=== PATIENT | female | born 1950 | race Caucasian/White ===

== ENCOUNTER 2022-09-18 06:31 | Observation (INO) ==
--- NOTE | 2022-09-05 10:31 | PAT Medication Instructions ---
Medication Instructions Date of Service September 05, 2022 Home Medications albuterol sulfate 90 mcg/actuation aerosol inhaler (Ventolin HFA) 2 puff inhalation Q4H PRN amlodipine 5 mg tablet 5 mg PO HS ascorbic acid (vitamin C) 1,000 mg tablet (Vitamin C) 1 g PO HS cetirizine 10 mg tablet (Zyrtec) 10 mg PO BID PRN cholecalciferol (vitamin D3) 125 mcg (5,000 unit) tablet (Vitamin D3) 125 mcg PO HS ferrous sulfate 325 mg (65 mg iron) tablet (iron) 325 mg PO HS levothyroxine 88 mcg tablet 88 mcg PO QAM lisinopril 10 mg-hydrochlorothiazide 12.5 mg tablet 1 tab PO QAM magnesium 200 mg tablet 400 mg PO QAM montelukast 10 mg tablet (Singulair) 10 mg PO QAM zinc 50 mg capsule 50 mg PO HS DO NOT take the morning of surgery cetirizine 10 mg tablet (Zyrtec) 10 mg PO BID PRN lisinopril 10 mg-hydrochlorothiazide 12.5 mg tablet 1 tab PO QAM magnesium 200 mg tablet 400 mg PO QAM Take morning of surgery With a small sip of water, OTHERWISE NOTHING TO EAT OR DRINK AFTER MIDNIGHT: albuterol sulfate 90 mcg/actuation aerosol inhaler (Ventolin HFA) 2 puff inhalation Q4H PRN(use if needed; please bring with you to hospital day of surgery if possible) levothyroxine 88 mcg tablet 88 mcg PO QAM montelukast 10 mg tablet (Singulair) 10 mg PO QAM Take evening before surgery albuterol sulfate 90 mcg/actuation aerosol inhaler (Ventolin HFA) 2 puff inhalation Q4H PRN(if needed) amlodipine 5 mg tablet 5 mg PO HS ascorbic acid (vitamin C) 1,000 mg tablet (Vitamin C) 1 g PO HS cetirizine 10 mg tablet (Zyrtec) 10 mg PO BID PRN(if needed) cholecalciferol (vitamin D3) 125 mcg (5,000 unit) tablet (Vitamin D3) 125 mcg PO HS ferrous sulfate 325 mg (65 mg iron) tablet (iron) 325 mg PO HS zinc 50 mg capsule 50 mg PO HS Other Notes If you have any questions please call us at [phone] or [phone] or [phone] or [phone]
--- NOTE | 2022-09-06 09:43 | Anesthesiology Consultation ---
Date of Service September 06, 2022 Assessment & Plan (1) Encounter for pre-operative examination: - COVID screening: Per assessment on 09/06: No known COVID-19 positive contacts or current COVID-19 related symptoms. Travel screen negative. At surgeon discretion if preop Covid testing being done. - Outpatient joint assessment: Pt currently scheduled for inpatient pathway. If surgeon requests review for outpatient joint pathway, patient is not recommended candidate for outpatient joint program from anesthesia standpoint. - Anesthesia/surgery concern: After right knee arthroscopy surgery, patient had large bruise and nerve damage to right thigh (felt related to tourniquet use)- residual issues "for a long time" > Patient requests caution with tourniquet use and BP cuff perioperatively as she is afraid of nerve damage/complications (patient states she will inform surgeon of concerns as well). - Family hx of (suspected) Malignant hyperthermia: Daughter- 30 years ago, came out of surgery with extremely high fever that they couldn't control. Daughter was never formally tested but was treated with MH precautions after the incident. Patient states she has never been formally tested but has mentioned the family history and "is always first case" > *OR (Jimena)/surgeon's office aware of need for MH precautions* Chart Review Chart Review: Acceptable Risk for Surgery and Patient seen in Pre Admission Testing Teaching & Discussion Pre-Anesthesia Teaching/Discussion Notes: Instructed NPO after midnight before surgery,except medications with 15 cc of water. Medication instructions provided according to the PAT guidelines. History Surgery Operation Date: 09/18/22 14:10 Proposed Procedures p Right Reverse Total Shoulder Arthroplasty - Ayaz Enriquez MD Height/Weight Height: 5 ft 1.5 in Weight: 75.3 kg Allergies Allergy/AdvReac Type Severity Reaction Status Date / Time vancomycin Allergy Severe DIFFICULTY Verified 09/05/22 07:35 BREATHING meperidine Allergy Intermediate RASH Verified 09/05/22 07:35 etodolac Allergy Unknown ASTHMA Verified 09/05/22 07:35 ATTACK ketorolac Allergy Unknown DEPRESSION Verified 09/05/22 07:35 latex Allergy Unknown LOCAL RASH Verified 09/05/22 07:35 adhesive AdvReac Intermediate RASH AND Verified 09/05/22 07:35 SWELLING celecoxib AdvReac Mild GI UPSET Verified 09/05/22 07:35 hydrocodone AdvReac Mild N&V Verified 09/05/22 07:35 oxycodone AdvReac Mild N&V Verified 09/05/22 07:35 topiramate AdvReac Mild N&V Verified 09/05/22 07:35 triprolidine AdvReac Mild RAPID Verified 09/05/22 07:35 HEART RATE blue dye AdvReac Unknown N&V Verified 09/05/22 07:35 duloxetine AdvReac Unknown N&V Verified 09/05/22 07:35 hydromorphone AdvReac Unknown N&V Verified 09/05/22 07:35 pseudoephedrine AdvReac Unknown RAPID Verified 09/05/22 07:35 HEARTBEAT Medications Home Medications Medication Instructions Recorded Confirmed Last Taken albuterol sulfate 90 mcg/actuation 2 puff inhalation Q4H PRN 09/05/22 09/05/22 Unknown aerosol inhaler (Ventolin HFA) Shortness Of Breath amlodipine 5 mg tablet 5 mg PO HS 09/05/22 09/05/22 Unknown ascorbic acid (vitamin C) 1,000 mg 1 g PO HS 09/05/22 09/05/22 Unknown tablet (Vitamin C) cetirizine 10 mg tablet (Zyrtec) 10 mg PO BID PRN seasonal allergies 09/05/22 09/05/22 Unknown cholecalciferol (vitamin D3) 125 125 mcg PO HS 09/05/22 09/05/22 Unknown mcg (5,000 unit) tablet (Vitamin D3) ferrous sulfate 325 mg (65 mg 325 mg PO HS 09/05/22 09/05/22 Unknown iron) tablet (iron) levothyroxine 88 mcg tablet 88 mcg PO QAM 09/05/22 09/05/22 Unknown lisinopril 10 1 tab PO QAM 09/05/22 09/05/22 Unknown mg-hydrochlorothiazide 12.5 mg tablet magnesium 200 mg tablet 400 mg PO QAM 09/05/22 09/05/22 Unknown montelukast 10 mg tablet 10 mg PO QAM 09/05/22 09/05/22 Unknown (Singulair) zinc 50 mg capsule 50 mg PO HS 09/05/22 09/05/22 Unknown Past Medical History Medical History Anemia Arthritis Asthma Fibromyalgia Minerva's disease History of COVID-19 x3, most recent 12/2021 Hypertension Multiple sclerosis Controlled off meds, no progression since 2017 Sleep apnea CPAP (occasional use) Exercise / Class Metabolic Activity II 4-5 Yardwork/Stairs/Walk up hill (one FS (no CP, no SOB)) Past Surgical History Surgical History (Updated 09/06/22 @ 10:20 by Angelina Schulte) Family history of malignant hyperthermia Daughter- 30 years ago, came out of surgery with extremely high fever that th ey couldn't control. Daughter was never formally tested but was treated with MH precautions after the incident. Patient states she has never been formally tested but has mentioned the family history and "is always first case" History of anesthesia problem Awareness History of bunionectomy of right great toe History of dilatation and curettage for 2 miscarriages History of ear surgery middle ear bone and eardrum reconstruction History of esophagogastroduodenoscopy (EGD) History of lumbar surgery History of total left knee replacement History of total right knee replacement History of uvulopalatopharyngoplasty Hx of arthroscopic knee surgery R/L After right knee arthroscopy surgery (2007), patient had large bruise and nerve damage to right thigh (felt related to tourniquet use)- residual issues "for a long time" Hx of breast lump removal benign Hx of cholecystectomy Hx of colonoscopy Hx of fusion of cervical spine Hx of myringotomy w/tubes Past Anesthesia History Malignant Hyperthermia (Family hx) and Other (Awareness) After right knee arthroscopy surgery (2007), patient had large bruise and nerve damage to right thigh (felt related to tourniquet use)- residual issues "for a long time" History of PONV No Hx of PONV Social History Smoking Status: Never smoker Do You Dip or Chew Tobacco: No Hx Alcohol Use: Yes Alcohol type: wine alcohol intake frequency: other Alcohol Intake Frequency Comment: ONCE PER WEEK, 1 GLASS Hx Substance Use: No substance use type: does not use Review of Systems Patient denies chest pain, shortness of breath, dyspnea on exertion, fever, chills, cough, wheezing, palpitations. Physical Exam Vital Signs VITALS BP 122/82 P 81 TEMP 97.8 SP02 98%RA RESP 16 PHYSICAL Full cervical extension range of motion. Full TMJ range of motion. TMD 3 finger breaths Mallampati Score 1 Dentition: upper full denture Lungs: clear throughout to auscultation Cardiac: regular rate and rhythm, no murmurs noted Spine: normal Carotid arteries: negative bruit Extremities: no edema Lab Results Anesthesia Preop Results Results Anesthesia Widget: WBC 6.19 K/ul (4.8-10.8) 09/06/22 Hgb 12.7 g/dl (12.0-16.0) 09/06/22 Hct 37.9 % (37.0-47.0) 09/06/22 Plt 248 K/uL (130-400) 09/06/22 Na 139 mmol/L (136-145) 09/06/22 K 4.1 mmol/L (3.5-5.1) 09/06/22 Cl 105 mmol/L (98-107) 09/06/22 CO2 29 mmol/L (21-32) 09/06/22 BUN 28 mg/dl (6-23) H 09/06/22 Creat 0.88 mg/dl (0.6-1.2) 09/06/22 Glucose Level 72 mg/dl (70-99(Fasting)) 09/06/22 PT 11.1 Seconds (9.0-12.0) 09/06/22 PTT 28.6 Seconds (21.0-31.0) 09/06/22 INR 1.0 (0.9-1.1) 09/06/22 Urine Color Yellow 09/06/22 Urine Appearance Clear (Clear) 09/06/22 Urine pH 5.0 (4.5-7.5) 09/06/22 Urine Specific [place] 1.020 (1.000-1.030) 09/06/22 Urine Protein Negative (Negative) 09/06/22 Urine Glucose (UA) Negative (Negative) 09/06/22 Urine Ketones Negative (Negative) 09/06/22 Urine Blood Negative (Negative) 09/06/22 Urine Nitrite Negative (Negative) 09/06/22 Urine Bilirubin Negative (Negative) 09/06/22 Urine Urobilinogen Negative (Negative) 09/06/22 Urine Leukocyte Esterase Negative (Negative) 09/06/22 Blood Type O Positive 09/06/22 Antibody Screen NEGATIVE 09/06/22 Testing Electrocardiogram Date: 09/06/22 Findings: + NSR @ (77) Chest X-Ray Date: 09/06/22 FINDINGS: Cardiomediastinal and hilar silhouettes are within normal limits. No pneumothorax, pleural effusion, airspace consolidation or pulmonary edema. Degenerative changes of the shoulders and spine. Findings suggestive of prior resection of the distal clavicles. Cholecystectomy. IMPRESSION: No acute process. COVID-19 Risk Screen Screening Information COVID-19 Screen Date: 09/06/22 Exposure 21 Days Family/Household +COVID Last 21 Days: No Exposure 10 Days Any COVID Exposure Last 10 Days: No Symptoms Last 10 Days Experienced COVID Sx Last 10 Days: No + COVID 0-90 Days COVID + in Last 0-90 Days: No
--- NOTE | 2022-09-17 09:00 | History & Physical Report ---
Date of Service September 17, 2022 Assessment & Plan (1) Rotator cuff arthropathy of right shoulder: Plan: Treatment options discussed with patient. She has failed conservative measures. Risks, benefits and alternatives to surgery including but not limited to infection, DVT, pain, stiffness, need for revision surgery, damage to blood vessels, damage to nerves, PE, , were discussed with the patient and they wish to proceed. Plan for right reverse total shoulder arthroplasty at [facility] on 09/18/[address] Enriquez. Plan on Nucynta post op for pain management. All quesitons answered. F/u post op. History of Present Illness Chief Complaint: Right shoulder pain Primary Care Provider: Hugo Sky 71yo female with PMHx significant for MS and HTN presents with ongoing right shoulder pain. Pain is interfering with her daily activity. She has failed conservative measures. Patient denies headaches, sweats, fevers, chills, double vision, blurred vision, cough, sore throat, dysphagia, chest pain, sob, wheezing, n/v/d/c, numbness, tingling, fatigue, urinary symptoms, mood disorders. ROS positive for right shoulder pain and stiffness. Allergies Allergy/AdvReac Type Severity Reaction Status Date / Time vancomycin Allergy Severe DIFFICULTY Verified 09/05/22 07:35 BREATHING meperidine Allergy Intermediate RASH Verified 09/05/22 07:35 etodolac Allergy Unknown ASTHMA Verified 09/05/22 07:35 ATTACK ketorolac Allergy Unknown DEPRESSION Verified 09/05/22 07:35 latex Allergy Unknown LOCAL RASH Verified 09/05/22 07:35 adhesive AdvReac Intermediate RASH AND Verified 09/05/22 07:35 SWELLING celecoxib AdvReac Mild GI UPSET Verified 09/05/22 07:35 hydrocodone AdvReac Mild N&V Verified 09/05/22 07:35 oxycodone AdvReac Mild N&V Verified 09/05/22 07:35 topiramate AdvReac Mild N&V Verified 09/05/22 07:35 triprolidine AdvReac Mild RAPID Verified 09/05/22 07:35 HEART RATE blue dye AdvReac Unknown N&V Verified 09/05/22 07:35 duloxetine AdvReac Unknown N&V Verified 09/05/22 07:35 hydromorphone AdvReac Unknown N&V Verified 09/05/22 07:35 pseudoephedrine AdvReac Unknown RAPID Verified 09/05/22 07:35 HEARTBEAT Home Medications Medication Instructions Recorded Confirmed Type albuterol sulfate 90 mcg/actuation 2 puff inhalation Q4H PRN 09/05/22 09/05/22 History aerosol inhaler (Ventolin HFA) Shortness Of Breath amlodipine 5 mg tablet 5 mg PO HS 09/05/22 09/05/22 History ascorbic acid (vitamin C) 1,000 mg 1 g PO HS 09/05/22 09/05/22 History tablet (Vitamin C) cetirizine 10 mg tablet (Zyrtec) 10 mg PO BID PRN seasonal allergies 09/05/22 09/05/22 History cholecalciferol (vitamin D3) 125 125 mcg PO HS 09/05/22 09/05/22 History mcg (5,000 unit) tablet (Vitamin D3) ferrous sulfate 325 mg (65 mg 325 mg PO HS 09/05/22 09/05/22 History iron) tablet (iron) levothyroxine 88 mcg tablet 88 mcg PO QAM 09/05/22 09/05/22 History lisinopril 10 1 tab PO QAM 09/05/22 09/05/22 History mg-hydrochlorothiazide 12.5 mg tablet magnesium 200 mg tablet 400 mg PO QAM 09/05/22 09/05/22 History montelukast 10 mg tablet 10 mg PO QAM 09/05/22 09/05/22 History (Singulair) zinc 50 mg capsule 50 mg PO HS 09/05/22 09/05/22 History Past Med/Surg History Medical History (Updated 09/17/22 @ 09:05 by Landon Rivers PA-C) Anemia Arthritis Asthma Fibromyalgia Minerva's disease History of COVID-19 x3, most recent 12/2021 Hypertension Multiple sclerosis Controlled off meds, no progression since 2017 Sleep apnea CPAP (occasional use) Surgical History (Updated 09/06/22 @ 10:20 by Angelina Schulte) Family history of malignant hyperthermia Daughter- 30 years ago, came out of surgery with extremely high fever that they couldn't control. Daughter was never formally tested but was treated with MH precautions after the incident. Patient states she has never been formally tested but has mentioned the family history and "is always first case" History of anesthesia problem Awareness History of bunionectomy of right great toe History of dilatation and curettage for 2 miscarriages History of ear surgery middle ear bone and eardrum reconstruction History of esophagogastroduodenoscopy (EGD) History of lumbar surgery History of total left knee replacement History of total right knee replacement History of uvulopalatopharyngoplasty Hx of arthroscopic knee surgery R/L After right knee arthroscopy surgery (2007), patient had large bruise and nerve damage to right thigh (felt related to tourniquet use)- residual issues "for a long time" Hx of breast lump removal benign Hx of cholecystectomy Hx of colonoscopy Hx of fusion of cervical spine Hx of myringotomy w/tubes Social History Smoking Status: Never smoker Second Hand Exposure: No; Hx Alcohol Use: Yes Alcohol type: wine Hx Substance Use: No Preferred Language: [place] Communication Ability: Effective Mechanical Maintenance Required: No Beliefs That Will Affect Care: None Current Living Situation: Alone Feels Safe at Home: Yes Assistive Devices: CPAP, Denture - Upper and Glasses Review of Systems All systems reviewed & are unremarkable except as noted in HPI & below Physical Exam Constitutional: well developed and well nourished; no acute distress Eyes: PERRL, conjunctivae normal, anicteric sclerae ENMT: external ear and nose normal, oropharynx normal Neck: trachea midline, no thyromegaly Respiratory: normal respiratory effort, lungs clear to auscultation Cardiovascular: RRR, no murmur, no edema Musculoskeletal: Right shoulder: Pain at end range lateral arm. Painful ROM. FF to 150 degrees, abduction to 130 degrees, ER to 70 degrees. Weakness with strength testing. Skin: no rashes, warm and dry Neurologic: patellar DTR's 2+ bilat, sensation intact Psychiatric: A+Ox3, euthymic affect Results & Data Diagnostic Findings X-rays of her right shoulder demonstrate that she has advancing glenohumeral osteoarthritis. She has a narrow glenohumeral joint space, large osteophytes, and calcifications in the rotator cuff versus loose bodies. Previous subacromial decompression and distal clavicle excision. Chronic cystic change in the bone proximally in the humerus. These are all consistent with rotator cuff arthropathy and advanced DJD of the glenohumeral joint. MRI demonstrates rotator cuff tendinopathy with partial tearing, large subchondral cyst greater tuberosity previously biopsied.
[~2022-09-18 06:31] MED LIST: FAMOTIDINE 20 MG TAB PO SCH; GABAPENTIN 300 MG CAP PO SCH; LR 500ML BOLUS, THEN 15ML/HR IV SCH; METOCLOPRAMIDE HCL 10 MG TABLET PO SCH; TRANEXAMIC ACID 1,000 MG **IV Intra-op IV SCH; TRANEXAMIC ACID 1,000 MG **IV Pre-op IV SCH; ceFAZolin 2000MG 2,000 MG/15 ML SYR IV SCH; dexAMETHasone 4 MG TAB PO SCH
[2022-09-18] MEDS ORDERED: BUPIVACAINE 0.5 % 5 MG/1 ML PF 10ML VIAL ONE (06:32)
[2022-09-18] MEDS ORDERED: LIDOCAINE 2% MPF LOCAL 5 ML VIAL ONE (07:08)
[2022-09-18] MEDS ORDERED: PROPOFOL IV EMULSION 10 MG/ML 20 ML VIAL IV ONE ×5 (07:08→11:33)
[2022-09-18] MEDS ORDERED: ROCURONIUM BROMIDE 10 MG/ML 5 ML VIAL IV ONE ×2 (07:08→10:14)
[2022-09-18] MEDS ORDERED: fentaNYL citrate PF 100 MCG/2 ML VIAL ONE (07:09)
[2022-09-18] MEDS ORDERED: KETAMINE 50 MG/5 ML SYRINGE ONE (07:09)
[2022-09-18] MEDS ORDERED: MIDAZOLAM HCL 1 MG/ML 2ML VIAL ONE ×2 (07:09→08:16)
--- NOTE | 2022-09-18 07:22 | History & Physical Bridge Note ---
Date of Service September 18, 2022 History & Physical Bridge Note I have examined the patient, reviewed the History & Physical and in the interval since the performance of the History & Physical I have noted the following changes of clinical significance: no changes noted
[2022-09-18] MEDS ORDERED: ONDANSETRON INJ 2 MG/ML 2 ML VIAL IV PRN ×2 (08:11→13:51)
[2022-09-18] MEDS ORDERED: ePHEDrine sulfate 50 MG/ML AMP IV PRN (08:11)
[2022-09-18] MEDS ORDERED: ATROPINE SULFATE 0.1 MG/ML 10ML SYR IV PRN (08:11)
[2022-09-18] MEDS ORDERED: LABETALOL HCL IV 5 MG/ML 20ML IV ONE (10:14)
[2022-09-18] MEDS ORDERED: SUGAMMADEX SODIUM 200 MG/2 ML VIAL IV ONE (10:15)
--- NOTE | 2022-09-18 12:42 | Post Operative Brief Note ---
Immediate Post Op Note v1 Date of Surgery September 18, 2022 Pre & Post Diagnosis Operation Date: 09/18/22 09:20 Pre-Op Diagnosis: Right Shoulder Rotator Cuff Arthropathy, humeral metaphyseal bone lesion/cyst, history of open rotator cuff surgery, history of open surgical treatment of humeral bone lesion. Post-Op Diagnosis: Right Shoulder Rotator Cuff Arthropathy, humeral metaphyseal bone lesion/soft tissue mass/cyst, history of open rotator cuff surgery, history of open surgical treatment of humeral bone lesion, biceps tenosynovitis. I identified the patient and participated in the time-out.: Yes Procedure Operation Date: 09/18/22 09:20 Actual Procedures p Right Reverse Total Shoulder Arthroplasty(Right), curettage excision of soft tissue bone lesion proximal humerus, biceps tenodesis.- Ayaz Enriquez MD Surgeon Ayaz Enriquez MD Nipple Threader Lázaro CHO Estimated Blood Loss 300 Findings Consistent with Post-Op Diagnosis Specimens Soft tissue material from bone lesion Humeral head bone Drains Hemovac Drain Anesthesia Type General Regional Complications none Disposition Disposition: Recovery Room Overlapping Procedure I was present for: the critical portions of procedure. Back up surgeon: was not required during procedure.
[2022-09-18] MEDS: fentaNYL citrate PF 100 MCG/2 ML VIAL IV PRN ×2 (12:53→12:58)
--- NOTE | 2022-09-18 13:30 | XRay Report ---
XR shoulder RT min 2V routine HISTORY: 71 years-old Female Post shoulder surgery COMPARISON: Chest radiograph 09/06/2022 TECHNIQUE: 2 views of the right shoulder FINDINGS: Reverse total joint arthroplasty demonstrates satisfactory alignment without acute fracture or unexpe cted opaque foreign body. Overlying skin chayo are noted along with expected soft tissue swelling w ith deep tissue air an surgical drainage catheter. Chronic widening of the AC joint. IMPRESSION: Total joint arthroplasty with expected postoperative changes. ACT 112: Negative or not required by law. The above report was generated using voice recognition software. It may contain grammatical, syntax o r spelling errors. Electronically signed by: Lemuel Quintanilla M.D. 09/18/2022 1:29 PM
--- NOTE | 2022-09-18 13:34 | Anesthesiology Progress Note ---
Date of Service September 18, 2022 Anesthesia Post Procedure Vital Signs Vital Signs: Temp Pulse Pulse Resp BP Pulse Ox O2 Del Method 09/18/22 13:20 79 17 99/62 L 99 Nasal Cannula 09/18/22 13:10 36.5 C 80 12 96/63 L 99 Nasal Cannula 09/18/22 13:00 64 14 101/65 97 Nasal Cannula 09/18/22 12:50 74 16 109/73 100 Nasal Cannula 09/18/22 12:41 36.1 C L 78 20 116/72 99 Nasal Cannula 09/18/22 06:49 36.6 C 82 20 132/78 100 Room Air O2 Flow Rate 09/18/22 13:20 3 09/18/22 13:10 3 09/18/22 13:00 3 09/18/22 12:50 3 09/18/22 12:41 3 09/18/22 06:49 Pain Intensity Bilateral Generalized: Pain Intensity: 4 Right Upper Arm: Pain Intensity: 4 Transfer of Care Handoff Completed per policy Notes Mental Status: alert / awake / arousable and participated in evaluation Patient Amnestic to Procedure: Yes Nausea / Vomiting: adequately controlled Pain: adequately controlled Airway Patency, RR, SpO2: stable & adequate BP & HR: stable & adequate Hydration State: stable & adequate Anesthetic Complications: no major complications apparent and Pt Satisfied with anesthetic care Notes: pt with functional nerve block. Motor exam of BP cuff side was 5/5. pt able to move all fingers
[2022-09-18] MEDS ORDERED: diphenhydrAMINE 50 MG/ML VIAL IV PRN (13:51)
[2022-09-18] MEDS ORDERED: bisacodyL 10 MG SUPP PR PRN (13:51)
[2022-09-18] MEDS ORDERED: NALOXONE HCL 0.4 MG/1 ML VIAL/CARP IV PRN (13:51)
[2022-09-18] MEDS ORDERED: CETIRIZINE HCL 10 MG TABLET PO PRN (13:51)
[2022-09-18] MEDS ORDERED: MAGNESIUM HYDROXIDE SUSP 30 ML UDC PO PRN (13:51)
[2022-09-18] MEDS ORDERED: ALBUTEROL HFA 8 GM INHALER INH PRN (13:51)
[2022-09-18] MEDS ORDERED: MoRPHine SULFATE 4 MG/ML 1 ML CARP\\VIAL IV PRN (13:51)
[2022-09-18] MEDS ORDERED: SODIUM CHLORIDE 0.9% 1000ML 1,000 ML IV SCH (13:51)
[2022-09-18] MEDS ORDERED: TAPENTADOL HCL 50 MG TAB PO PRN (13:51)
--- NOTE | 2022-09-18 14:14 | Hospitalist Consultation ---
Date of Consultation September 18, 2022 Assessment & Plan (1) Rotator cuff arthropathy of right shoulder: Right total shoulder arthroplasty Activity and pain control per primary team. Continue Nucynta. 300 cc of blood loss. 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 No signs of neurovascular compromise Postop hypoxia, history of asthma 3 L nasal cannula chronic postop, history of well-controlled asthma on Singulair and as needed albuterol - Continue incentive spirometry, patient has spirometer at time of bedside visit but has not yet used No wheezing on exam, do not suspect asthma exacerbation at this time If persistent through the evening obtain x-ray to evaluate for hemidiaphragm elevation a.m. on 09/19 Hypothyroidism Continue Synthroid Hypertension BP 107/67 postop Hold lisinoprilhydrochlorothiazide until 09/19. Resume if normo/hypertensive and renal function is normal, otherwise resume 09/20. Resume amlodipine 09/19, hold 09/18 for mild postop hypotension Multiple sclerosis No history of steroid use, stable since 2016 without symptoms or flares. No vision change. No deficits noted on consultation exam. Continue outpatient follow-up, no treatment indicated for this at this time (2) Hypertension: (3) Multiple sclerosis: (4) Asthma: (5) Fibromyalgia: History of Present Illness Attending Physician: Ayaz Enriquez MD History of Present Illness Anastasia is a 71-year-old female with a past medical history of hypertension, hypothyroidism who presented for scheduled right shoulder reverse total arthroplasty. Preoperative lab review 09/06/2022: Sodium 139, potassium 4.1. Creatinine with a normal baseline of less than 1, 0.88 on 09/06. Coags normal. Hemoglobin 12.7, MCV 92. Preoperative EKG with normal sinus rhythm QTc 448 and with no signs of acute ischemia Anastasia is seen at the bedside. She reports she feels well, and has intact sensation in both hands. She reports she has a history of MS, but this has been stable and has not needed treatment since 2017 when it was noticed due to weakness and falls while at [place]. She is never been on steroids. She has not had any vision change. Does not have any residual deficits since 2017, and has not noticed any recent or current deficits. She has history of asthma well- controlled, has not been wheezing lately. She has never needed oxygen before. She does not feel short of breath or have chest pain/chest pressure. She is not lightheaded or dizzy. She has multiple sensitivities to medications, notes she gets nauseous easily with narcotics but has not had lip/tongue swelling. Did have a rash with meperidine, and a rash with difficulty breathing to vancomycin. Otherwise denies medication allergies. No additional concerns at bedside visit. Allergies Allergy/AdvReac Type Severity Reaction Status Date / Time vancomycin Allergy Severe DIFFICULTY Verified 09/18/22 07:00 BREATHING meperidine Allergy Intermediate RASH Verified 09/18/22 07:00 etodolac Allergy Unknown ASTHMA Verified 09/18/22 07:00 ATTACK ketorolac Allergy Unknown DEPRESSION Verified 09/18/22 07:00 latex Allergy Unknown LOCAL RASH Verified 09/18/22 07:00 adhesive AdvReac Intermediate RASH AND Verified 09/18/22 07:00 SWELLING celecoxib AdvReac Mild GI UPSET Verified 09/18/22 07:00 hydrocodone AdvReac Mild N&V Verified 09/18/22 07:00 oxycodone AdvReac Mild N&V Verified 09/18/22 07:00 topiramate AdvReac Mild N&V Verified 09/18/22 07:00 triprolidine AdvReac Mild RAPID Verified 09/18/22 07:00 HEART RATE blue dye AdvReac Unknown N&V Verified 09/18/22 07:00 duloxetine AdvReac Unknown N&V Verified 09/18/22 07:00 hydromorphone AdvReac Unknown N&V Verified 09/18/22 07:00 pseudoephedrine AdvReac Unknown RAPID Verified 09/18/22 07:00 HEARTBEAT Home Medications Medication Instructions Recorded Confirmed Type albuterol sulfate 90 mcg/actuation 2 puff inhalation Q4H PRN 09/05/22 09/18/22 History aerosol inhaler (Ventolin HFA) Shortness Of Breath amlodipine 5 mg tablet 5 mg PO HS 09/05/22 09/18/22 History ascorbic acid (vitamin C) 1,000 mg 1 g PO HS 09/05/22 09/18/22 History tablet (Vitamin C) cetirizine 10 mg tablet (Zyrtec) 10 mg PO BID PRN seasonal allergies 09/05/22 09/18/22 History cholecalciferol (vitamin D3) 125 125 mcg PO HS 09/05/22 09/18/22 History mcg (5,000 unit) tablet (Vitamin D3) ferrous sulfate 325 mg (65 mg 325 mg PO HS 09/05/22 09/18/22 History iron) tablet (iron) levothyroxine 88 mcg tablet 88 mcg PO QAM 09/05/22 09/18/22 History lisinopril 10 1 tab PO QAM 09/05/22 09/18/22 History mg-hydrochlorothiazide 12.5 mg tablet magnesium 200 mg tablet 400 mg PO QAM 09/05/22 09/18/22 History montelukast 10 mg tablet 10 mg PO QAM 09/05/22 09/18/22 History (Singulair) zinc 50 mg capsule 50 mg PO HS 09/05/22 09/18/22 History Patient History Medical History (Updated 09/18/22 @ 15:12 by Sy Thurston MD) Anemia Arthritis Asthma Fibromyalgia Minerva's disease History of COVID-19 x3, most recent 12/2021 Hypertension Multiple sclerosis Controlled off meds, no progression since 2017 Sleep apnea CPAP (occasional use) Surgical History Family history of malignant hyperthermia Daughter- 30 years ago, came out of surgery with extremely high fever that they couldn't control. Daughter was never formally tested but was treated with MH precautions after the incident. Patient states she has never been formally tested but has mentioned the family history and "is always first case" History of anesthesia problem Awareness History of bunionectomy of right great toe History of dilatation and curettage for 2 miscarriages History of ear surgery middle ear bone and eardrum reconstruction History of esophagogastroduodenoscopy (EGD) History of lumbar surgery History of total left knee replacement History of total right knee replacement History of uvulopalatopharyngoplasty Hx of arthroscopic knee surgery R/L After right knee arthroscopy surgery (2007), patient had large bruise and nerve damage to right thigh (felt related to tourniquet use)- residual issues "for a long time" Hx of breast lump removal benign Hx of cholecystectomy Hx of colonoscopy Hx of fusion of cervical spine Hx of myringotomy w/tubes Social History Smoking Status: Never smoker Second Hand Exposure: No; Do You Dip or Chew Tobacco: No; Tobacco Cessation Education Requested by Patient: No Hx Alcohol Use: Yes Alcohol type: wine Hx Substance Use: No Preferred Language: Tamazight Communication Ability: Effective Grain Farmer Required: No Beliefs That Will Affect Care: None Current Living Situation: Alone Other Information That Helps Us Care for You: No Feels Safe at Home: Yes Safety Concerns: Feels Safe At This Time Assistive Devices: CPAP, Denture - Upper and Glasses Review of Systems Review of Systems: All systems reviewed & are unremarkable except as noted in HPI & below Physical Exam Physical Exam: General: A&Ox3. NAD. Cooperative. HEENT: Atraumatic, normocephalic. Vision/hearing grossly intact Pulm: CTAB A&P. -wheezes, -rales, -rhonchi. Symmetrical chest rise. No increased work of breathing. No respiratory distress. Cardiac: RRR, -mrg. Radial pulses intact and symmetrical. Abdominal: Nontender, nondistended, soft. BS present. Extremities: Right shoulder in postoperative sling. Aix Administrator strength 5/5 bilaterally, sensation intact in fingertips bilaterally without asymmetry or deficit. Radial pulse intact bilaterally. Moves lower extremities equally. Drain in place at operative site draining sanguinous to dark serosanguineous material. Results & Data Results & Data Vital Signs (Past 12 Hours) Vital Signs Temp Pulse Pulse Resp BP Pulse Ox O2 Del Method 09/18/22 13:45 Nasal Cannula 09/18/22 13:45 36.9 C 86 16 107/67 98 Nasal Cannula 09/18/22 13:20 79 17 99/62 L 99 Nasal Cannula 09/18/22 13:10 36.5 C 80 12 96/63 L 99 Nasal Cannula 09/18/22 13:00 64 14 101/65 97 Nasal Cannula 09/18/22 12:50 74 16 109/73 100 Nasal Cannula 09/18/22 12:41 36.1 C L 78 20 116/72 99 Nasal Cannula 09/18/22 06:49 36.6 C 82 20 132/78 100 Room Air O2 Flow Rate 09/18/22 13:45 3 09/18/22 13:45 3 09/18/22 13:20 3 09/18/22 13:10 3 09/18/22 13:00 3 09/18/22 12:50 3 09/18/22 12:41 3 09/18/22 06:49 PG Care Time/CCT Total # of Minutes Spent Total Time Spent with Patient: Total time spent is greater than 50% in coordination of care (as documented) at patient's floor/unit and/or counseling patient: Coding Level of Care Code 93964 IN/OBS CONSULT LVL 3,45M Diagnoses Rotator cuff arthropathy of right shoulder M12.811 Hypertension I10 Multiple sclerosis G35 Asthma J45.909 Fibromyalgia M79.7
[2022-09-18] MEDS: ACETAMINOPHEN 500 MG TAB PO SCH ×2 (14:53→21:44)
[2022-09-18] MEDS: ceFAZolin 2000MG 2,000 MG/15 ML SYR IV SCH (18:08)
--- NOTE | 2022-09-18 18:12 | Operative Report ---
Post Operative Report Pre & Post Diagnosis Operation Date: 09/18/22 09:20 Pre-Op Diagnosis: Right Shoulder Rotator Cuff Arthropathy, end-stage glenohumeral osteoarthritis, bone lesion proximal humerus, history of open rotator cuff surgery, history of open bone lesion biopsy. Post-Op Diagnosis: Right Shoulder Rotator Cuff Arthropathy, end-stage glenohumeral osteoarthritis, partial tear rotator cuff rotator cuff tendinopathy, biceps tenosynovitis biceps tendinopathy, history open rotator cuff surgery, history of open bone lesion biopsy, bone lesion soft tissue mass versus cyst proximal humerus. I identified the patient and participated in the time-out.: Yes Procedure Operation Date: 09/18/22 09:20 Actual Procedures p Right Reverse Total Shoulder Arthroplasty(Right), excisional curettage bone lesion proximal humerus metaphyseal area, biceps tenodesis, biceps tenosynovectomy, debridement partial tear infraspinatus tendon.- Ayaz Enriquez MD Surgeon Ayaz Enriquez MD Irradiated Fuel Handler Lázaro CHO Estimated Blood Loss 300 Findings Consistent with Post-Op Diagnosis Specimens 1. Samples of soft tissue mass of bone lesion #2 humeral head Drains 2 Hemovac Anesthesia Type General Regional Complications none Disposition Disposition: Recovery Room Indications 71-year-old female with chronic right shoulder pain. Patient history of open rotator cuff surgery in the past which likely included distal clavicle excision. Patient's had progressive osteoarthritis of glenohumeral joint now [id number]. MRI demonstrates substantial tendinopathy partial tearing of the rotator cuff but no clear full-thickness tear but high-grade partial tearing and tendinopathy. Patient also has a bone lesion in the metaphysis proximal humerus which was biopsied by orthopedic oncologist and felt to be a benign cyst and reevaluated by orthopedic oncologist again preop and not biopsied despite increased size of cyst. Patient cleared to have shoulder replacement as they felt lesion is benign. Description of Procedure The patient was taken to the operating room and anesthetized under regional block and general anesthetic. The patient was positioned on the operating table in a 30 beach chair position with a towel roll under the medial border of the right scapula. The arm was draped free to be able to manipulate the shoulder as needed. The right upper extremity was prepped and draped in usual sterile fashion. Exam demonstrated good passive range of motion with glenohumeral crepitation. There were 2 scars of the anterior shoulder and a y type pattern due to a new scar overlying the older more vertical scar. These were anterior and deltopectoral area. An anterior deltopectoral approach was performed. A longitudinal incision was made in the deltopectoral interval. I lengthened one of the primary anterior scars up to the level of the coracoid process. The skin was incised sharply. Subcutaneous flaps were elevated off the fascia. The cephalic vein was dissected out and retracted lateral with the deltoid. There was some scar tissue that was released between the deltoid and pectoral muscles. The scarred clavipectoral fascia was divided at the lateral margin of the conjoined tendon and extended up to the CA ligament. The following findings were noted: There was some bursitis over the rotator cuff but the subscapularis tendon was intact. There was a fluid collection on the biceps tendon with chronic tenosynovitis with intact biceps tendon. There was an intact rotator cuff although it had tendinopathy mainly with the infraspinatus. There was some scar tissue subdeltoid from prior surgery that had to be released to help gain full exposure.. The upper centimeter of the pectoralis was released for inferior exposure. A self-retaining retractor was placed. the biceps tendon was tenodesed to the pectoralis tendon with #2 FiberWire. The proximal biceps was resected. The subscapular muscle fibers were split longitudinally at the level of the circumflex vessels. The circumflex vessels were identified and tied off with silk ties and divided laterally. A Kitner elevator was used to free up the inferior fibers of the subscapularis off of the capsule. The axillary nerve was identified with a tug test and protected with a blunt Israel retractor between the nerve and the capsule. The subscapularis tendon was then taken down off of the lesser tuberosity subperiosteally, a Vicryl traction suture was placed and a subperiosteal dissection was performed along the neck of the humerus as the arm was gradually externally rotated exposing the humeral head. The humeral head findings demonstrated substantial inferior osteophytes from anterior to posterior and eburnated bone no articular cartilage remaining.. retractors were readjusted and the inferior osteophytes were all resected using an artist chisel. A Dunn elevator was used to assist in releasing the capsule of the neck of the humerus. The capsule was divided with Solorzano scissors down to the glenoid released off the anterior glenoid and the rotator interval was released to meet the capsular release and a 360 release of the subscapularis was accomplished. A Fukuda retractor was placed into the joint retracting the humeral head posterior. Glenoid findings demonstrated some large loose bodies attached to the anterior capsule which were resected. The glenoid was eburnated bone along the posterior two thirds of the glenoid with some remaining anterior articular cartilage. There was also some superior remaining articular cartilage.. The labrum and biceps tendon was resected. an anterior-inferior and posterior inferior capsular release were performed with electrocautery and a Dunn elevator on bone with the axillary nerve protected inferiorly by the retractor. Attention was then taken to the humeral preparation. The cutting guide was placed into the humeral head. It was positioned at 20 of retroversion. Osci llating saw was used to resect the humeral head giving the cut above the level of the posterior rotator cuff insertion site. Making this cut exposed the soft tissue mass was present in the posterior aspect of the metaphysis. The calcar bone was still intact the other metaphyseal bone was very hard and solid. The mass was well-defined but did penetrate the cortex and the cortex was very thin and there was some of this soft tissue mass material within the cortex. Using straight and angled curettes and a rongeur the material was removed from the humerus. The area was approximately 3 x 2 and half centimeters. I did have to remove the outer cortex as well. Despite removing the outer cortex there was still solid bone in line with the canal as there was an eccentric offset to the canal anteriorly so that placement of the stem was not affected by curettage of the soft tissue mass. The material was a light browne to white soft material that was uniform but no gel-like or typical bone cyst type material. The area was copiously irrigated. the humerus was then prepared for the stem. I used the ascend flex stem from [employer]. A centering awl was first used followed by the sizing broaches followed by trial broaches up to a size 1 as she was very petite. This had the appropriate fit and fill. There was solid bone between the implant and the area of bone lesion curettage without any communication there. There was good calcar bone as well and the implant had good rotational stability. The appropriate sized cut protector was placed. The humerus was then retracted posterior to the glenoid. The glenoid was sized for a 25 baseplate with 36 glenoid sphere. The guide for the baseplate was positioned in a 10 inferior tilt and the central drill hole was made. The reamer for the 25 baseplate was used. The central drill was widened for the peg. The aequalis hydroxyapatite-coated 25 millimeter standard post baseplate was impacted into position. The base plate was transfixed with superior and inferior locking screws and anterior and posterior compression screws with stable fixation. The fan reamer was used for the 36 millimeter glenoid sphere. After irrigation the 36 symmetrical glenoid sphere was impacted onto the baseplate and the security screw was tightened. Attention was taken back to the humerus. The cut protector was removed and the plus or high offset humeral tray trial was assembled to the trial stem rotated appropriately to get bony coverage and then screwed in position. A trial reduction was performed. A +6, 36 reversed trial insert demonstrated good stability and no shuck. The trials were removed. 3 drill holes are made into the harder bone in the bicipital groove area and 3 #5 FiberWire sutures were placed transosseously. The canal was irrigated with antibiotic solution with bacitracin. The final component was assembled. The final component was [employer] ascend flex 1B long PTC stem set assembled to the plus or high offset tray and a 36, +6 reversed polyethylene insert. This was then impacted into the humerus with a tight press-fit. It was reduced to the glenoid sphere. Stability was verified. Subscapularis was repaired with the #5 FiberWire sutures using Hawk-Mauricio suture technique. Lateral row soft tissue repair was performed with #2 FiberWire [id number] sutures. The pectoralis was repaired with #2 FiberWire [id number] sutures reinforcing the biceps tendon tenodesis. The arm was taken through a range of motion which demonstrated 150 degrees forward flexion 100 degrees abduction and 60 degrees external rotation without tension on repair. The implant was stable through the range of motion tested. The wound was copiously irrigated. 2 Hemovac drains were placed. The deltopectoral interval was closed with [id number] #1 Vicryl sutures. The subcutaneous tissues were closed with 2-0 Vicryl sutures. The skin was closed with chayo. Sterile dressings were applied and a shoulder immobilizer. Lázaro CHO, my physician blood bank assistant acted as first aid director throughout the procedure .He performed functions including patient positioning, arm positioning, prepping and draping, soft tissue retraction, instrument management, suture management and performed the subcutaneous and skin closure and will participate in the postoperative care of the patient. I attest to the content of the Intraoperative Record and any orders documented therein. Any exceptions are noted below.
[2022-09-18] MEDS: ZINC SULFATE 220 MG CAPSULE PO SCH ×2 (21:43→22:43)
[2022-09-18] MEDS: ASCORBIC ACID 500 MG TAB PO SCH ×2 (21:44→22:43)
[2022-09-18] MEDS: CHOLECALCIFEROL 5,000 UNITS 125 MCG TAB PO SCH ×2 (21:44→22:43)
[2022-09-18] MEDS: amLODIPine BESYLATE 5 MG TAB PO SCH ×2 (21:44→22:43)
[2022-09-18] MEDS: MONTELUKAST SODIUM 10 MG TABLET PO SCH ×2 (21:44→22:43)
[2022-09-18] MEDS: DOCUSATE SODIUM 100 MG CAP PO SCH ×2 (21:45→22:43)
[2022-09-19] MEDS: ceFAZolin 2000MG 2,000 MG/15 ML SYR IV SCH (02:00)
[2022-09-19] MEDS: ACETAMINOPHEN 500 MG TAB PO SCH (06:06)
[2022-09-19] MEDS ORDERED: LEVOTHYROXINE SODIUM 88 MCG TABLET PO SCH (06:30)
--- NOTE | 2022-09-19 07:58 | Orthopedic Progress Note ---
Date of Service September 19, 2022 Assessment & Plan (1) Status post reverse total arthroplasty of right shoulder: Plan: Postop day #1 right reverse total shoulder arthroplasty -PT/OT: No formal therapy on her shoulder for 6 weeks. Patient will perform home exercises as instructed. -Pain management as written. Patient has had reactions to multiple pain medications. We will send Nucynta to see if she can tolerate this better. -A.m. labs: 11.2 from 12.5 preop due to surgical loss versus dilutional. Mild leukocytosis likely reactive due to surgical stress and perioperative steroids, she is asymptomatic. Chemistries pending. -DVT prophylaxis: SCDs, aspirin 81 mg daily -Discharge planning: Plan on discharge home today. Admission and Anticipated Discharge Date Admission Date: September 18, 2022 Subjective Patient is postop day #1 right reverse total shoulder arthroplasty. She is doing well this morning. Pain is well controlled. No current complaints. Denies chest pain, shortness of breath, nausea/vomiting, headache/dizziness. Review of Systems Review of Systems: All systems reviewed & are unremarkable except as noted in Subjective Physical Exam Physical Exam: Right shoulder: Sling in place. Dressing is clean, dry, intact. Fingers are mobile with good industrial seamstress strength. Distally neurovascular status and sensation grossly intact. Constitutional: WD/WN, vitals as above Results & Data Vital Signs (Past 12 Hours) Vital Signs Temp Pulse Pulse Resp BP Pulse Ox O2 Del Method 09/19/22 04:00 36.9 C 102 H 18 112/70 92 Room Air 09/19/22 00:11 36.9 C 105 H 18 107/66 91 Room Air 09/18/22 20:00 37.1 C 93 H 18 105/63 93 Room Air
[2022-09-19] MEDS: DOCUSATE SODIUM 100 MG CAP PO SCH (08:31)
[2022-09-19 08:37] LABS: Basophils # (auto) 0.01 K/uL (0-0.2); Basophils % (auto) 0.1 %; Hematocrit (blood only) 32.4 % (37.0-47.0); Hemoglobin 11.2 g/dl (12.0-16.0); Immature Granulocytes # (auto) 0.06 K/uL (0.01-0.20); Immature Granulocytes % (auto) 0.5 %; Lymphocytes # (auto) 1.22 K/uL (1.2-3.4); Lymphocytes % (auto) 9.9 %; Mean Corpuscular Hemoglobin 31.3 pg (25.0-34.0); Mean Corpuscular Hgb Conc 34.6 g/dL (32.0-36.0); Mean Corpuscular Volume 90.5 fL (80.0-100.0); Mean Platelet Volume 9.6 fL (9.4-12.4); Monocytes # (auto) 0.76 K/uL (0.11-0.59); Monocytes % (auto) 6.2 %; Neutrophils # (auto) 10.25 K/uL (1.40-6.50); Neutrophils % (auto) 83.3 %; Platelet Count 228 K/uL (130-400); RDW Standard Deviation 43.3 fL (36.4-46.3); Red Blood Count 3.58 M/uL (4.20-5.40)
[2022-09-19 08:49] LABS: BUN Creatinine Ratio 26.9 (10-20); Calcium 9.1 mg/dl (8.6-10.3); Creatinine Clr Calc Pharmacy 44.3 ml/min; Est GFR (African American) 59.4 ml/min; Est GFR (Non-African American) 51.2 ml/min; Potassium 3.9 mmol/L (3.5-5.1)
[2022-09-19] MEDS ORDERED: MAGNESIUM OXIDE 400 MG TAB PO SCH (09:00)
[2022-09-19] MEDS ORDERED: LISINOPRIL/HCTZ 10/12.5MG TAB PO SCH (09:00)
[2022-09-19] MEDS ORDERED: ASPIRIN 81 MG ECTAB PO SCH (09:00)
[2022-09-19] MEDS ORDERED: MULTIVITAMIN TAB PO SCH (09:00)
--- NOTE | 2022-09-21 12:08 | Discharge Summary ---
Date of Service September 21, 2022 Admission HPI Per Admitting Provider 71yo female with PMHx significant for MS and HTN presents with ongoing right shoulder pain. Pain is interfering with her daily activity. She has failed conservative measures. Patient denies headaches, sweats, fevers, chills, double vision, blurred vision, cough, sore throat, dysphagia, chest pain, sob, wheezing, n/v/d/c, numbness, tingling, fatigue, urinary symptoms, mood disorders. ROS positive for right shoulder pain and stiffness. Admission Exam Per Admitting Provider Physical Exam Constitutional: well developed and well nourished; no acute distress Eyes: PERRL, conjunctivae normal, anicteric sclerae ENMT: external ear and nose normal, oropharynx normal Neck: trachea midline, no thyromegaly Respiratory: normal respiratory effort, lungs clear to auscultation Cardiovascular: RRR, no murmur, no edema Musculoskeletal: Right shoulder: Pain at end range lateral arm. Painful ROM. FF to 150 degrees, abduction to 130 degrees, ER to 70 degrees. Weakness with strength testing. Skin: no rashes, warm and dry Neurologic: patellar DTR's 2+ bilat, sensation intact Psychiatric: A+Ox3, euthymic affect Principal Diagnosis Osteoarthritis Right Shoulder Discharge Data Allergies Allergy/AdvReac Type Severity Reaction Status Date / Time vancomycin Allergy Severe DIFFICULTY Verified 09/18/22 07:00 BREATHING meperidine Allergy Intermediate RASH Verified 09/18/22 07:00 etodolac Allergy Unknown ASTHMA Verified 09/18/22 07:00 ATTACK ketorolac Allergy Unknown DEPRESSION Verified 09/18/22 07:00 latex Allergy Unknown LOCAL RASH Verified 09/18/22 07:00 adhesive AdvReac Intermediate RASH AND Verified 09/18/22 07:00 SWELLING celecoxib AdvReac Mild GI UPSET Verified 09/18/22 07:00 hydrocodone AdvReac Mild N&V Verified 09/18/22 07:00 oxycodone AdvReac Mild N&V Verified 09/18/22 07:00 topiramate AdvReac Mild N&V Verified 09/18/22 07:00 triprolidine AdvReac Mild RAPID Verified 09/18/22 07:00 HEART RATE blue dye AdvReac Unknown N&V Verified 09/18/22 07:00 duloxetine AdvReac Unknown N&V Verified 09/18/22 07:00 hydromorphone AdvReac Unknown N&V Verified 09/18/22 07:00 pseudoephedrine AdvReac Unknown RAPID Verified 09/18/22 07:00 HEARTBEAT Consultations 09/16/22 11:56 Consult Hospitalist Routine Procedures Performed Operation Date: 09/18/22 09:20 Actual Procedures p Right Reverse Total Shoulder Arthroplasty(Right) - Ayaz Enriquez MD Ordered Studies 09/18/22 05:00 US - OR guided needle placemen Routine Hospital Course (1) Status post reverse total arthroplasty of right shoulder: Patient:BINDU JOSÉ Admit Date:09/18/22 MR#:[id number] Att Phy:Ayaz Enriquez M.D. Acct ID:[id number] Lala Phy:Hugo Sky Gertrudis, DO Date:1950 Fam Phy: Age:72 Location:3N Sex:F Room/Bed:[facility] cc: ~ *NOTICE TO RECEIVING DEMOCRAT/AGENCY This information is strictly Confidential and protected under [place] law. [place] law prohibits you from making any further disclosure of this information unless further disclosure is expressly permitted by the written consent of the person to whom it pertains or is authorized by law. A general authorization for the release of medical or other information is not sufficient for this purpose. Hospital accepts no responsibility if the information is made available to any other person, INCLUDING THE PATIENT. Date of Service September 19, 2022 Assessment & Plan (1) Status post reverse total arthroplasty of right shoulder: Plan: Postop day #1 right reverse total shoulder arthroplasty -PT/OT: No formal therapy on her shoulder for 6 weeks. Patient will perform home exercises as instructed. -Pain management as written. Patient has had reactions to multiple pain medications. We will send Nucynta to see if she can tolerate this better. -A.m. labs: 11.2 from 12.5 preop due to surgical loss versus dilutional. Mild leukocytosis likely reactive due to surgical stress and perioperative steroids, she is asymptomatic. Chemistries pending. -DVT prophylaxis: SCDs, aspirin 81 mg daily -Discharge planning: Plan on discharge home today. Admission and Anticipated Discharge Date Admission Date: September 18, 2022 Subjective Patient is postop day #1 right reverse total shoulder arthroplasty. She is doing well this morning. Pain is well controlled. No current complaints. Denies chest pain, shortness of breath, nausea/vomiting, headache/dizziness. Review of Systems Review of Systems: All systems reviewed & are unremarkable except as noted in Subjective Physical Exam Physical Exam: Right shoulder: Sling in place. Dressing is clean, dry, intact. Fingers are mobile with good manager of financial planning strength. Distally neurovascular status and sensation grossly intact. Constitutional: WD/WN, vitals as above Results & Data Vital Signs (Past 12 Hours) Vital Signs Temp Pulse Pulse Resp BP Pulse Ox O2 Del Method 09/19/22 04:00 36.9 C 102 H 18 112/70 92 Room Air 09/19/22 00:11 36.9 C 105 H 18 107/66 91 Room Air 09/18/22 20:00 37.1 C 93 H 18 105/63 93 Room Air Signed By: <Electronically signed by Landon Rivers PA-C> 09/19/22 0846 <Electronically signed by Ayaz Enriquez MD> 09/19/22 0911 Created:09/19/22 0756 Total Time Total Time Spent Total Time Spent (In Minutes): 5 Discharge Plan Discharge Items Patient Disposition: Home - Self-Care Reason For Visit: Right Shoulder Rotator Cuff Arthropathy Discharge Diagnosis: Right shoulder rotator cuff arthropathy Activity: Per Instructions section Weightbearing: Right non-weightbearing Non-emergency contact: Surgeon Call non-emergency contact if: you have any medication questions, your pain is not controlled, your pain is concerning for you, your temperature is above 101.5, your wound has increased redness and your wound has increased drainage Follow-up/Referrals: Ayaz Enriquez MD [Surgeon] - (Follow-up with Dr. Enriquez or his PA in 2 weeks from the day of surgery for your first postoperative visit.) Hugo Sky DO [Primary Care Provider] - 09/23/22 1:30 pm Diet: Regular Addtl Attending Provider Instructions: ACTIVITY RECOMMENDATIONS: SELF CARE INSTRUCTIONS AFTER TOTAL SHOULDER ARTHROPLASTY REVERSE A. You may do daily exercises as taught in physical therapy while in hospital. No lifting with the operative arm. B. You are to wear your sling/immobilizer at all times EXCEPT when performing your daily exercises and for hygiene purposes. C. You may perform dry, daily dressing changes. Please keep your incision covered. You may shower 48 hours after surgery. Do not apply soap or any ointment/lotions directly over incision. Do not soak incision in bath tub/swimming pool. D. You may use ice as needed to operative shoulder. SPECIAL CARE INSTRUCTIONS: VERY IMPORTANT TO READ AND REVIEW A. There are a few signs you need to watch for after you are home. Call [facility] at [phone] if you experience any of the followin. Increased severe shoulder pain. Some pain is expected especially when you exercise. 2. Increased swelling in you shoulder or arm; pain or swelling in either upper extremity. 3. Any fluid drainage from the incision. 4. Shortness of breath or chest pain. B. Please call [facility] at [phone] if you have any questions or concerns about your operation or recovery. C. Call your physician if: 1. Temperature is greater than 101 degrees (F). 2. Pain is not relieved by prescribed pain medications. 3. Increase drainage or redness from incision. 4. Unanswered questions or concerns. FOLLOW UP VISIT: Please call [facility] at [phone] to schedule a follow up appointment with Dr. Enriquez or his PA in 12-14 days from your surgery date. Stand-Alone Forms: [facility], Pain - Opioid Pain Management, Smoking Cessation Medications and DC Order Prescriptions: New aspirin 81 mg Tablet,Delayed Release (Dr/Ec) 81 mg PO QAM Qty: 30 0RF acetaminophen [Tylenol Extra Strength] 500 mg Tablet 1,000 mg PO Q8 Qty: 60 0RF Nucynta 50 mg tablet 50 mg PO Q6H PRN (Reason: pain) Qty: 12 0RF Rx Instructions: Initial therapy, Dr. Enriquez supervising Continued ascorbic acid (vitamin C) [Vitamin C] 1,000 mg Tablet 1 g PO HS cetirizine [Zyrtec] 10 mg Tablet 10 mg PO BID PRN (Reason: seasonal allergies) Patient Comments: once daily, twice if necessary amlodipine 5 mg Tablet 5 mg PO HS levothyroxine 88 mcg Tablet 88 mcg PO QAM ferrous sulfate [iron] 325 mg (65 mg iron) Tablet 325 mg PO HS montelukast [Singulair] 10 mg Tablet 10 mg PO QAM lisinopril-hydrochlorothiazide 10-12.5 mg Tablet 1 tab PO QAM albuterol sulfate [Ventolin HFA] 90 mcg/actuation Hfa Aerosol Inhaler 2 puff INHALATION Q4H PRN (Reason: Shortness Of Breath) Patient Comments: doesn't use often magnesium 200 mg Tablet 400 mg PO QAM zinc 50 mg Capsule 50 mg PO HS cholecalciferol (vitamin D3) [Vitamin D3] 125 mcg (5,000 unit) Tablet 125 mcg PO HS Discharge Orders: Discharge Order (Routine); Ordered 09/19/22 Ordered By: Landon Rivers Admission Data Admit Date/Time: 09/18/22 12:49 Attending Provider: Ayaz Enriquez Admit Provider: Ayaz Enriquez Primary Care Provider: uHgo Sky Other Providers: Nicola Meyer Thomas E. Other Interventions: Discharge Summary Assessment (RN) Last Done: 09/19/22 10:48
== END 2022-09-19 11:51 | disposition home or self-care (01) ==
LOC: ASU 06:31 → 3N 06:31